=== PATIENT | female | born 1955 | race Caucasian/White ===

== ENCOUNTER → 2021-04-20 | Day surgery (SDC) | payer MEDICARE ==
[~2021-04-20] MED LIST: ADULT LOW DOSE81 MG PO; ASPIRIN EC81 MG PO; BASAGLAR K100 UNIT/1 SQ; BENAZEPRIL-HCT1 EAC2 PO; BUMETANIDE1 MG PO; CRESTOR20 MG PO; DULOXETINE HCL30 MG PO; ETODOLAC ER600 MG PO; FARXIGA5 MG PO; FLAGYL500 MG PO; FUROSEMIDE20 MG PO; GABAPENTIN800 MG PO; HYDROCODON-ACE1 EAC6 PO; LEVEMIR FL100 UNIT/1 SQ; LEVOTHYROXINE50 MCG PO; LINZESS72 MCG PO; LISINOPRIL10 MG PO; MINOCYCLINE HC100 M1 PO; MONTELUKAST SOD10 MG PO; PANTOPRAZOLE SO20 MG PO; POTASSIUM CHLO10 ME1 PO; TIZANIDINE HCL4 MG PO; VENTOLIN HFA 66.7 GM INH; XIFAXAN 550 MG550 MG PO
== END | disposition home or self-care (01) ==
LOC: OR 05:57
PROVIDERS: Internal Medicine Gastroenterology
PROC: 0DB78ZX Excision of Stomach, Pylorus, Via Natural or Artificial Opening Endoscopic, Diagnostic (ICD-10-PCS; 2021-04-20)
PROC: 0DB68ZX Excision of Stomach, Via Natural or Artificial Opening Endoscopic, Diagnostic (ICD-10-PCS; principal; 2021-04-20 09:00)
DX: K25.4 Chronic or unspecified gastric ulcer with hemorrhage (principal); D50.9 Iron deficiency anemia, unspecified; K31.7 Polyp of stomach and duodenum; K31.89 Other diseases of stomach and duodenum; K29.70 Gastritis, unspecified, without bleeding; E11.9 Type 2 diabetes mellitus without complications; I10 Essential (primary) hypertension; E66.9 Obesity, unspecified; Z68.32 Body mass index [BMI] 32.0-32.9, adult; Z20.822 Contact with and (suspected) exposure to COVID-19; Z79.82 Long term (current) use of aspirin; Z79.4 Long term (current) use of insulin; Z79.899 Other long term (current) drug therapy
CPT/HCPCS: 82962; J2001; J2704; J7040; U0002